=== PATIENT | male | born 1970 | race Caucasian/White ===

== ENCOUNTER 2023-12-21 11:47 | Day surgery (SDC) | payer OTHER ==
[~2023-12-21] VITALS: Ht 188 cm; Wt 109.0 kg
[~2023-12-21 11:47] MED LIST: GLUCOSAMINE-CH1 EACH PO; IBLOOD GLUCOSE TEST STRIP 1 EA TEST VI PRN; LACTATED RINGER'S 1,000 ML IV SCH; LIDOCAINE HCL 1% 5 ML SDV INJ ONE; LOSARTAN POTASS50 MG PO; MIDAZOLAM HCL 5 MG/5 ML VIAL IV PRN; fentaNYL citrate 100 MCG/2 ML VIAL IV PRN
[2023-12-21] MEDS ORDERED: fentaNYL citrate 100 MCG/2 ML VIAL ONE (12:00)
[2023-12-21] MEDS ORDERED: MIDAZOLAM HCL 5 MG/5 ML VIAL ONE (12:00)
[2023-12-21 12:13] VITALS: BP 123/81
[2023-12-21] MEDS ORDERED: CENTRUM SILVER1 EAC9 PO (12:16)
--- NOTE | 2023-12-21 14:16 | NUR ---
12/21/23 1416 Cecily Gillespie 1404-PT ARRIVES TO PACU RESTING ON LT SIDE. PT AWAKE AND DENIES PAIN ONLY C/O DISCOMFORT IN RECTUM, PT ENCOURAGED TO PASS GAS. PT AFEBRILE BUT DIAPHORETIC. BP LOW, HOB LOWERED AND IV FLUIDS WIDE OPEN.
[2023-12-21 15:01] VITALS: BP 110/70
--- NOTE | 2023-12-23 10:37 | OR ---
[facility] [address] [place], [place] [address] Signed DATE OF OPERATION: 12/21/2023 SURGEON: David Flanagan MD PREOPERATIVE DIAGNOSIS: Colon screening. POSTOPERATIVE DIAGNOSES: 1. Small cecal polyp (excised). 2. Sigmoid diverticulosis. PROCEDURE: Total colonoscopy to cecum with cold morcellation polypectomy x1. ANESTHESIA: Intravenous sedation fentanyl 150 mcg, Versed 6 mg. INDICATION: This 53-year-old white man is a patient of Dr. Godwin Samuels and is referred for screening colonoscopy. He has never had colonoscopy in the past. He understands risk of bleeding, infection, and perforation related to colonoscopy. He has no symptoms of bleeding, diarrhea, constipation and no family history of colon cancer. He understands the risk of the procedure. He wished to proceed. FINDINGS: Prep was quite good. Complete colonoscopy was undertaken to the cecum with full intubation of the cecum. There were several diverticula of the sigmoid. There was a small polyp of the cecum, which was excised with cold morcellation technique. Almost certainly it is an adenomatous polyp. PROCEDURE IN DETAIL: The patient was brought to the endoscopy suite and placed in lateral decubitus position, given intravenous sedation to the point of slurred speech and nystagmus. Full cardiopulmonary monitoring was maintained. Digital rectal examination was normal. An Olympus video colonoscope was passed in the rectum and manipulated throughout the colon noting a few diverticula of the sigmoid and left colon. Scope was ultimately passed to the cecum. Full intubation of the cecum was undertaken with assistance with abdominal wall stabilization. Irrigation showed a small polyp which was adenomatous in the cecum, which was excised with cold morcellation technique. Scope was further Electronically Signed By: DAVID FLANAGAN MD 12/23/23 [facility] PATIENT NAME: IDANIA RODRIGUEZ OPERATIVE REPORT DATE OF : 74 REPORT #: [id number] PHYSICIAN: DAVID FLANAGAN MD PCP: GODWIN SAMUELS MD REPORT IS CONFIDENTIAL AND NOT TO BE RELEASED WITHOUT AUTHORIZATION [facility] [address] [place] [id number] Signed withdrawn and careful examination throughout showed no sign of other abnormality other than diverticula of the sigmoid and left colon. Retroflexed view of the rectum was normal. Scope was removed. The patient was taken to the recovery room in good condition. CONCLUDING DIAGNOSIS: Polyp of cecum and diverticula. PLAN: Recommend repeat colonoscopy in 5 to 7 years, sooner if symptoms should develop. Would recommend high-fiber diet. He will return to the ongoing care of Dr. Samuels. MD SHEA Newman/PRITESH /[id number] cc: Dr. Samuels Copies: ~ Electronically Signed By: DAVID FLANAGAN MD 12/23/23 1037 PATIENT NAME: IDANIA RODRIGUEZ OPERATIVE REPORT DATE OF : 74 REPORT #: [id number] PHYSICIAN: DAVID FLANAGAN MD PCP: GODWIN SAMUELS MD REPORT IS CONFIDENTIAL AND NOT TO BE RELEASED WITHOUT AUTHORIZATION
--- NOTE | 2023-12-23 11:54 | PATH ---
[facility] [address] [place], [place] [address] Signed SPECIMEN(S): A CECUM POLYP SPECIMEN SOURCE: A. CECUM POLYP CLINICAL HISTORY: Colon screening/diverticulosis, colon polyp FINAL PATHOLOGIC DIAGNOSIS: Cecum polyp: - Tubular adenoma, negative for high-grade dysplasia. NA MICROSCOPIC EXAMINATION: Histologic sections of all submitted blocks are examined by light microscopy. These findings, together with the gross examination, support the pathologic diagnosis. GROSS DESCRIPTION: The specimen, labeled and designated "Waldemar Rodriguez, rectum polyp," is received in formalin and consists of two ledezma soft tissue fragments, ranging from 0.2-0.4 cm. Entirely submitted in (A1). AB (under the direct supervision of a pathologist) The Gross Description was prepared using a voice recognition system. The report was reviewed for accuracy; however, sound-alike word errors, addition and/or deletions may occur. If there is any question about this report, please contact Client Services. ADDITIONAL NOTES: Immunohistochemical and/or in situ hybridization studies if performed in this case included appropriate positive controls that reacted as expected. This test was developed and its performance characteristics determined by [employer]. It has not been cleared or approved by the U.S. Food and Drug Administration. The FDA has determined that such clearance or approval is not necessary. This test is used for clinical purposes. It should not be regarded as investigational or for research. [employer] is certified under the Clinical Laboratory Improvement Amendments of 1988 (CLIA) as qualified to perform high complexity clinical laboratory testing. PATIENT NAME: IDANIA RODRIGUEZ PATHOLOGY DATE OF : 74 REPORT #: [id number] PHYSICIAN: APARNA PATEL PCP: GODWIN SAMUELS MD REPORT IS CONFIDENTIAL AND NOT TO BE RELEASED WITHOUT AUTHORIZATION [facility] [address] [place], [place] [address] Signed PERFORMING LABORATORY: Technical component [place] [address] (CLIA# [id number]). Professional interpretation was performed by [facility] [place] [address] (CLIA#: [id number]). Diagnostician: Ashley Danielle MD Pathologist Electronically Signed 12/23/2023 Copies: ~ PATIENT NAME: IDANIA RODRIGUEZ PATHOLOGY DATE OF : 74 REPORT #: [id number] PHYSICIAN: APARNA PATEL PCP: GODWIN SAMUELS MD REPORT IS CONFIDENTIAL AND NOT TO BE RELEASED WITHOUT AUTHORIZATION
== END 2023-12-21 15:11 | disposition home or self-care (01) ==
LOC: DS 11:47
PROVIDERS: ATTEND Surgery
PROC: 0DBH8ZZ Excision of Cecum, Via Natural or Artificial Opening Endoscopic (ICD-10-PCS; principal; 2023-12-21 13:00)
DX: Z12.11 Encounter for screening for malignant neoplasm of colon (principal); D12.0 Benign neoplasm of cecum; K57.30 Diverticulosis of large intestine without perforation or abscess without bleeding; I10 Essential (primary) hypertension; Z79.899 Other long term (current) drug therapy
CPT/HCPCS: 99153; G0500; J2250; J3010; J7121